=== PATIENT | male | born 1985 | race Caucasian/White ===

== ENCOUNTER 2018-04-19 16:18 | Emergency (ER) | payer OTHER ==
--- NOTE | 2018-04-19 16:57 | EDPHY ---
HPI/HX/ROS/PE/MDM Narrative: CHIEF COMPLAINT: Chest pain HPI: The patient is a 32 y/o male complaining of waxing and waning left-sided chest discomfort for the last several days. Early this morning around 03:00, about 14 hours ago, he woke with left anterior chest pain in a cold sweat. This afternoon he felt like his heart was racing so he came to the ED. Lying down seems to improve symptoms. He cannot clearly correlate exertion or other activities with symptoms. No dyspnea, fever, cough, nausea, vomiting, abdominal pain. He gets heartburn occasionally, but these symptoms feel distinct. No cardiac disease at a young age in first degree relatives. He thinks his symptoms are stress related. REVIEW OF SYSTEMS: A comprehensive 10 system review of systems is otherwise negative aside from elements mentioned in the history of present illness. PMH: Reflux. SOCIAL HISTORY: Lives in [place]. 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 PHYSICAL EXAM: General:Patient is alert, in no acute distress. ENT:Eyes are normal to inspection. ENT inspection normal. Neck: Normal inspection. Full range of motion. Respiratory:No respiratory distress. Breath sounds normal bilaterally. Cardiovascular: Regular rate and rhythm. Strong peripheral pulses. Normal cap refill. Abdomen:The abdomen is nontender to palpation. There are no peritoneal signs. Back: Normal to inspection. No tenderness to palpation. Skin: Normal color. No rash. Warm and dry. Extremities: Normal appearance. Full range of motion. Neuro: Oriented x3. Normal motor function. Normal sensory function. ED Course: This is a healthy 32 y/o male who presents with a one-week history of left- sided chest discomfort. His exam is unremarkable. Vitals are stable. Plan for IV , labs, EKG, chest x-ray. The 12 lead EKG was interpreted by myself. See hard copy and/or "tracemaster" electronic copy for interpretation. Chest x-ray: negative. Labs unremarkable. Reassessed patient and discussed findings. Offered admission for further cardiac evaluation, which he declined. Recommended outpatient cardiology follow up this week. Return precautions discussed. He is comfortable with this plan. MDM: This patient presents with somewhat atypical chest pain. We performed an extensive workup in the ED which is negative. The patient's HEART score places him at low risk. He declines admission to the hospital or further observation for repeat troponin. I discussed the fact that etiology of his pain is unknown and that we are unable to fully rule out cardiac disease here in the ED. The patient requests to be discharged home and accepts referral to Cardiology. We discussed strict return precautions. - Data Points Imaging Results: Imaging Impressions Chest X-Ray 04/19/18 16:37 Impression: Negative chest. Imaging: I viewed and interpreted images myself Laboratory Results: Laboratory Results 04/19/18 16:49 04/19/18 16:49 04/19/18 04/19/18 04/19/18 16:52 16:49 16:49 WBC 10.40 10^3/uL H 10^3/uL (3.80-9.50) RBC 5.29 10^6/uL 10^6/uL (4.40-6.38) Hgb 14.9 g/dL g/dL (13.7-17.5) Hct 43.9 % % (40.0-51.0) MCV 83.0 fL fL (81.5-99.8) MCH 28.2 pg pg (27.9-34.1) MCHC 33.9 g/dL g/dL (32.4-36.7) RDW 11.9 % % (11.5-15.2) Plt Count 314 10^3/uL 10^3/uL (150-400) MPV 9.8 fL fL (8.7-11.7) Neut % (Auto) 82.3 % H % (39.3-74.2) Lymph % (Auto) 11.5 % L % (15.0-45.0) [place] % (Auto) 5.4 % % (4.5-13.0) Eos % (Auto) 0.3 % L % (0.6-7.6) Baso % (Auto) 0.2 % L % (0.3-1.7) Nucleat RBC Rel Count 0.0 % % (0.0-0.2) Absolute Neuts (auto) 8.56 10^3/uL H 10^3/uL (1.70-6.50) Absolute Lymphs (auto) 1.20 10^3/uL 10^3/uL (1.00-3.00) Absolute Monos (auto) 0.56 10^3/uL 10^3/uL (0.30-0.80) Absolute Eos (auto) 0.03 10^3/uL 10^3/uL (0.03-0.40) Absolute Basos (auto) 0.02 10^3/uL 10^3/uL (0.02-0.10) Absolute Nucleated RBC 0.00 10^3/uL 10^3/uL (0-0.01) Immature Gran % 0.3 % % (0.0-1.1) Immature Gran # 0.03 10^3/uL 10^3/uL (0.00-0.10) Sodium 138 mEq/L mEq/L (135-145) Potassium 4.0 mEq/L mEq/L (3.5-5.2) Chloride 105 mEq/L mEq/L (97-110) Carbon Dioxide 25 mEq/l mEq/l (22-31) Anion Gap 8 mEq/L mEq/L (6-14) BUN 18 mg/dL mg/dL (7-23) Creatinine 1.0 mg/dL mg/dL (0.7-1.3) Estimated GFR > 60 Glucose 99 mg/dL mg/dL (70-100) Calcium 9.3 mg/dL mg/dL (8.5-10.4) POC Troponin I 0.01 ng/mL ng/mL (0.00-0.08) Point of Care Test Results: Chemistry 04/19/18 16:52 POC Troponin I 0.01 ng/mL ng/mL (0.00-0.08) General Time Seen by Provider: 04/19/18 16:36 Initial Vital Signs: Initial Vital Signs Temperature (C) 36.5 C 04/19/18 16:23 Heart Rate 78 04/19/18 16:23 Respiratory Rate 18 04/19/18 16:23 Blood Pressure 131/80 H 04/19/18 16:23 O2 Sat (%) 96 04/19/18 16:23 O2 Delivery Mode Room Air Allergies/Adverse Reactions: No Known Allergies Allergy (Unverified 04/19/18 16:22) Home Medications: Medication Instructions Recorded Ranitidine HCl 04/19/18 Departure - Departure Disposition: Home, Routine, Self-Care Clinical Impression: Chest pain Qualifiers: Chest pain type: other chest pain Qualified Code(s): R07.89 - Other chest pain Condition: Good Instructions: Chest Pain (ED) Additional Instructions: Follow up with rotary shear cutter this week. Return to the ED for any worsening of condition. Referrals: Veena Tirado MD [Primary Care Provider] - As per Instructions Chaparro Zavala MD [Medical Doctor] - As per Instructions Report Scribed for: Andrew Castellanos Report Scribed by: Cee Lomax Date of Report: 04/19/18 Time of Report: 16:38 Physician Review and Approval Statement: Portions of this note were transcribed by an ED scribe. I personally performed the history, physical exam, and medical decision making; and confirm the accuracy of the information in the transcribed note.
[2018-04-19 17:08] LABS: PLATELET COUNT 314 10^3/uL (150-400)
[2018-04-19 17:36] VITALS: BP 99/79
--- NOTE | 2018-04-21 18:11 | CPEKG ---
Test Reason : OPEN Blood Pressure : / mmHG Vent. Rate : 072 BPM Atrial Rate : 072 BPM P-R Int : 135 ms QRS Dur : 106 ms QT Int : 357 ms P-R-T Axes : 069 011 041 degrees QTc Int : [address] elev, probable normal early repol pattern Confirmed by Maddie Tierney ([id number]) on 04/21/2018 6:10:40 PM Referred By: PHYSICIAN ED Confirmed By:Maddie Tierney
== END 2018-04-19 17:38 | disposition home or self-care (01) ==
DX: R07.89 Other chest pain (principal)
CPT/HCPCS: 84484-ER